=== PATIENT | female | born 1960 | race Caucasian/White ===

== ENCOUNTER 2017-10-30 14:14 | Observation (INO) | END 2017-10-31 20:02 | disposition home or self-care (01) ==

== ENCOUNTER 2018-02-02 14:10 | Emergency (ER) | END 2018-02-02 19:55 | disposition home or self-care (01) ==

== ENCOUNTER 2018-07-13 15:47 | Emergency (ER) | payer SELFPAY ==
[~2018-07-13] VITALS: Ht 160 cm; Wt 89.0 kg
[~2018-07-13 15:47] MED LIST: ALPR0.5T PO; AMLO-145 PO; ASPI-817 PO; HYG50 PO; LEVO50TA7 PO; LISI-526 PO; METF100010 PO; METF500T24 PO; NAPR-985 PO; SIMV20TA PO
[2018-07-13 15:51] VITALS: Ht 160 cm; Wt 89.0 kg
--- NOTE | 2018-07-13 16:10 | ERD ---
ER Documentation Chief Complaint Chief Complaint sent by PMD for high BP; ran out of meds for 2 weeks HPI 58-year-old female, with history of diabetes and hypertension, presents to the emergency department, referred by her primary doctor for elevated blood pressure, found to be 190/90 at the clinic today. According to the patient, she ran out of medication 2 weeks ago. She currently denies headache, no nausea, no blurred vision, no distal weakness, numbness or tingling. ROS All systems reviewed and are negative except as per history of present illness. Medications Home Meds Active Scripts Alprazolam* (Xanax*) 0.5 Mg Tab, 0.5 MG PO TID PRN for ANXIETY, #12 TAB Prov:STONE MARSHALL MD 02/02/18 Naproxen* (Naprosyn*) 500 Mg Tablet, 500 MG PO BID PRN for PAIN AND/OR INFLAMMATION, #30 TAB Prov:STONE MARSHALL MD 02/02/18 Metformin Hcl* (Metformin Hcl*) 500 Mg Tablet, 500 MG PO WITH BREAKFAST DINNE, #60 TAB Prov:HELLEN KUMAR MD 02/26/17 Amlodipine Besylate* (Amlodipine Besylate*) 5 Mg Tablet, 5 MG PO BID for 60 Days, #60 TAB Prov:HELLEN KUMAR MD 02/26/17 Reported Medications Aspirin* (Aspirin* EC) 81 Mg Tablet.dr, 81 MG PO DAILY, TAB 10/30/17 Metformin Hcl* (Metformin Hcl*) 1,000 Mg Tablet, 1000 MG PO WITH BREAKFAST DINNE, #60 TAB 10/30/17 Levothyroxine Sodium* (Levothyroxine Sodium*) 50 Mcg Tablet, 50 MCG PO BEFORE BREAKFAST, #30 TAB 10/30/17 Simvastatin* (Zocor*) 20 Mg Tablet, 20 MG PO QHS, #30 TAB 10/30/17 Chlorthalidone* (Chlorthalidone*) 50 Mg Tablet, 50 MG PO DAILY, TAB 10/30/17 Lisinopril* (Zestril*) 40 Mg Tablet, 40 MG PO DAILY, #30 TAB 10/30/17 Allergies Allergies: Coded Allergies: No Known Allergy (Unverified , 10/30/17) PMhx/Soc History of Surgery: Yes () Anesthesia Reaction: No Hx Neurological Disorder: No Hx Respiratory Disorders: No Hx Cardiac Disorders: Yes (HTN) Hx Psychiatric Problems: No Hx Miscellaneous Medical Probl: No Hx Alcohol Use: No Hx Substance Use: No Hx Tobacco Use: No FmHx Family History: diabetes, coronary disease Physical Exam Vitals Vital Signs Date Temp Pulse Resp B/P (MAP) Pulse Ox O2 O2 Flow FiO2 Time Delivery Rate 07/13/18 98.2 62 18 189/79 97 Room Air 18:06 (115) 07/13/18 97.8 57 20 204/91 97 15:51 (128) Physical Exam Const: No acute distress Head: Atraumatic Eyes: Normal Conjunctiva ENT: Normal External Ears, Nose and Mouth. Neck: Full range of motion. No meningismus. Resp: Clear to auscultation bilaterally Cardio: Regular rate and rhythm, no murmurs Abd: Soft, non tender, non distended. Normal bowel sounds Skin: No petechiae or rashes Back: No midline or flank tenderness Ext: No cyanosis, or edema Neur: Awake and alert Psych: Normal Mood and Affect Results 24 hrs Current Medications Medications Dose Sig/Jimmy Start Time Status Last (Trade) Ordered Route PRN Stop Time Admin Dose Reason Admin Nicardipine 30 mg ONCE ONCE 07/13/18 DC 07/13/18 HCl PO 16:30 16:30 (Cardene) 07/13/18 16:31 EKG read by me: Rate/Rhythm: Regular rate and rhythm at a rate of 56 Intervals: Normal No acute ST changes. No T wave inversion Impression: No evidence of acute ischemia or arrhythmia Procedures/MDM At the time of discharge, vital signs stable, blood pressure: 179/89 Differential diagnosis considered include uncontrolled hypertension, hypertensive crisis, hypertensive urgency, hypertensive emergency. Low suspicion for acute end organ damage. During the ED course the patient remained stable, no new complaints. The patient received treatment with oral nicardipine presenting overall improvement of the symptoms. Results and clinical impression discussed with the patient and family who agreed with management. The patient is stable to be treated outpatient and will be discharged home; the patient got a refill for all her medications at home, at this time, no indication to start a new anti-hypertensive medication. Follow up with the primary care provider in the next 48h has been recommended. If symptoms persist, worsen or new symptoms develop, then patient should return to the ED immediately. Instructions explained and given directly by me to the patient with ac knowledgment and demonstrated understanding. Disclaimer: Inadvertent spelling and grammatical errors are likely due to EHR/dictation software use and do not reflect on the overall quality of patient care. Also, please note that the electronic time recorded on this note does not necessarily reflect the actual time of the patient encounter. Departure Diagnosis: Primary Impression: Hypertension Condition: Stable Patient Instructions: High Blood Pressure (Hypertension) Additional Instructions: Muchas alize por [facility] para jeffery servicio. Esperamos que en jeffery visita a la mansoor de emergencia jeffery problema medico haya sido solucionado y que se sienta mucho mejor. Para estar seguros que jeffery mejoria sigue en proceso, le pedimos el favor de hacer sarah craig de seguimiento medico con jeffery doctor primario en los proximos 2-4 burgos. Lleve con usted estos documentos y las medicinas recetadas. Si hero sintomas empeoran, NO SE ESPERE, por favor regrese a mansoor de emergencia INMEDIATAMENTE. En breanna que usted no tenga un mdico de atencin primaria: Llame al mdico o clnica comunitaria de referencia que aparece abajo daren la s horas de consultorio para hacer sarah craig para que le vean. CLINICAS: [facility] [phone] [facility] [phone] [facility] [phone] [facility] [phone] [place] [phone] [facility]. [phone] ISRAEL ROLLE MD Jul 13, 2018 16:10
[2018-07-13] MEDS ORDERED: NICARDipine HCL 30 MG CAPSULE PO ONE (16:30)
[2018-07-13 18:06] VITALS: BP 189/79; PULSE 62; RESP 18
== END 2018-07-13 18:09 | disposition home or self-care (01) ==
LOC: E/R 15:47 → FTE 18:09
DX: I10 Essential (primary) hypertension (principal); E11.9 Type 2 diabetes mellitus without complications; Z79.82 Long term (current) use of aspirin; Z79.84 Long term (current) use of oral hypoglycemic drugs
CPT/HCPCS: 93005

== ENCOUNTER 2018-08-01 09:08 | Emergency (ER) | payer MEDICAID ==
[~2018-08-01] VITALS: Ht 160 cm; Wt 83.0 kg
[2018-08-01 09:19] VITALS: Ht 160 cm; Wt 83.0 kg
[2018-08-01] MEDS ORDERED: TRAM50TA2 PO (11:36)
[2018-08-01] MEDS ORDERED: NAPR-985 PO (11:36)
[2018-08-01 12:08] VITALS: BP 185/73; PULSE 82; RESP 16
--- NOTE | 2018-08-01 13:48 | ERD ---
ER Documentation Chief Complaint Chief Complaint fell wednesday c/o left sided rib pain HPI 58-year-old female presenting with left-sided rib pain after a fall 2 days ago. Patient states that she tripped over a mat and fell on hard surface. She denies any loss of consciousness or head injury. She states her pain is worse with deep inhalations. She has not taken medications today for pain. Denies other medical problems. NKDA. Surgical history denies. Social history denies ROS All systems reviewed and are negative except as per history of present illness. Medications Home Meds Active Scripts Naproxen* (Naprosyn*) 500 Mg Tablet, 500 MG PO BID PRN for PAIN AND/OR INFLAMMATION, #30 TAB Prov:DANIELITO GASCA PA-C 08/01/18 Tramadol HCl (Tramadol HCl) 50 Mg Tablet, 50 MG PO Q4 PRN for PAIN, #20 TAB Prov:DANIELITO GASCA PA-C 08/01/18 Alprazolam* (Xanax*) 0.5 Mg Tab, 0.5 MG PO TID PRN for ANXIETY, #12 TAB Prov:STONE MARSHALL MD 02/02/18 Naproxen* (Naprosyn*) 500 Mg Tablet, 500 MG PO BID PRN for PAIN AND/OR INFLAMMATION, #30 TAB Prov:STONE MARSHALL MD 02/02/18 Metformin Hcl* (Metformin Hcl*) 500 Mg Tablet, 500 MG PO WITH BREAKFAST DINNE, #60 TAB Prov:HELLEN KUMAR MD 02/26/17 Amlodipine Besylate* (Amlodipine Besylate*) 5 Mg Tablet, 5 MG PO BID for 60 Days, #60 TAB Prov:HELLEN KUMAR MD 02/26/17 Reported Medications Aspirin* (Aspirin* EC) 81 Mg Tablet.dr, 81 MG PO DAILY, TAB 10/30/17 Metformin Hcl* (Metformin Hcl*) 1,000 Mg Tablet, 1000 MG PO WITH BREAKFAST DINNE, #60 TAB 10/30/17 Levothyroxine Sodium* (Levothyroxine Sodium*) 50 Mcg Tablet, 50 MCG PO BEFORE BREAKFAST, #30 TAB 10/30/17 Simvastatin* (Zocor*) 20 Mg Tablet, 20 MG PO QHS, #30 TAB 10/30/17 Chlorthalidone* (Chlorthalidone*) 50 Mg Tablet, 50 MG PO DAILY, TAB 10/30/17 Lisinopril* (Zestril*) 40 Mg Tablet, 40 MG PO DAILY, #30 TAB 10/30/17 Allergies Allergies: Coded Allergies: No Known Allergy (Unverified , 10/30/17) PMhx/Soc History of Surgery: Yes () Anesthesia Reaction: No Hx Neurological Disorder: No Hx Respiratory Disorders: No Hx Cardiac Disorders: Yes (HTN) Hx Psychiatric Problems: No Hx Miscellaneous Medical Probl: Yes (DM,high Cholesterol,Thyroid problem) Hx Alcohol Use: No Hx Substance Use: No Hx Tobacco Use: No Smoking Status: Never smoker FmHx Family History: No diabetes, No coronary disease, No other Physical Exam Vitals Vital Signs Date Temp Pulse Resp B/P (MAP) Pulse Ox O2 O2 Flow FiO2 Time Delivery Rate 08/01/18 98.2 82 16 185/73 95 Room Air 12:08 (110) 08/01/18 98.0 56 18 190/70 95 09:19 (110) Physical Exam GENERAL: The patient is well-appearing, well-nourished, in no acute distress HEENT: Atraumatic. Conjunctivae are pink. Pupils equal, round, and reactive to light. There is no scleral icterus. Tympanic membranes clear bilaterally. Oropharynx clear. NECK: C-spine is soft and supple. There is no meningismus. There is no cervical lymphadenopathy. CHEST: Clear to auscultation bilaterally. There are no rales, wheezes or rhonchi. Palpation over left lateral rib space with no crepitus or deformity. HEART: Regular rate and rhythm. No murmurs, clicks, rubs or gallops. SKIN: There is no apparent rash or petechiae. The skin is warm and dry. Procedures/MDM DIAGNOSTIC IMAGING REPORT Patient: RONNIE GHOTRA : 1960 Age: 58 Sex: F MR #: [id number] DOS: 08/01/18 1049 Ordering MD: BETZAIDA GASCA PA-C Location: [facility] Room/Bed: PROCEDURE: XR Chest. CLINICAL INDICATION: chest pain TECHNIQUE: Single frontal view of the chest was obtained COMPARISON: 02/02/2018 FINDINGS: There is mild cardiomegaly. The lungs are clear. There is no pleural effusion or pneumothorax. RPTAT: AA IMPRESSION: No acute disease. Mild cardiomegaly. DIAGNOSTIC IMAGING REPORT Patient: RONNIE GHOTRA : 1960 Age: 58 Sex: F MR #: [id number] DOS: 08/01/18 1049 Ordering MD: BETZAIDA GASCA PA-C Location: [facility] Room/Bed: PROCEDURE: XR ribs . CLINICAL INDICATION: pain TECHNIQUE: AP and oblique views of the left ribs were obtained. COMPARISON: None FINDINGS: The bone mineralization is normal. There is no acute fracture or subluxation. The soft tissues are unremarkable. RPTAT: AA IMPRESSION: No acute fracture. MDM: 58-year-old female presenting with chest wall pain after fall. I have low suspicion for acute fracture dislocation. Patient pain is likely associated with rib contusion. Patient is told symptoms change or worsen to return immediately to the ER. She is recommended to maintain adequate respirations to avoid risk of pneumonia developing. Patient is told symptoms change or worsen to return immediately to the ER. All questions answered at discharge Departure Diagnosis: Primary Impression: Rib contusion Condition: Stable Patient Instructions: Rib Contusion Additional Instructions: FOLLOW UP WITH YOUR PRIMARY CARE PHYSICIAN TOMORROW.Return to this facility if you are not improving as expected. DANIELITO GASCA PA-C August 01, 2018 13:48
== END 2018-08-01 12:10 | disposition home or self-care (01) ==
LOC: FTE 09:08
DX: S20.212A Contusion of left front wall of thorax, initial encounter (principal); I10 Essential (primary) hypertension; E11.9 Type 2 diabetes mellitus without complications; W01.0XXA Fall on same level from slipping, tripping and stumbling without subsequent striking against object, initial encounter; Y92.9 Unspecified place or not applicable; Z79.82 Long term (current) use of aspirin; Z79.84 Long term (current) use of oral hypoglycemic drugs
CPT/HCPCS: 71045; 71100; Z7502